=== PATIENT | male | born 1965 | race Caucasian/White ===

== ENCOUNTER 2018-01-15 09:54 | Inpatient (IN) | payer BC, OTHER ==
[2018-01-15 10:08] VITALS: BMI 25.4
[2018-01-15] MEDS ORDERED: SODIUM CHLORIDE 1,000 ML IV STA (10:46)
[2018-01-15] MEDS ORDERED: PANTOPRAZOLE SODIUM 40 MG VIAL IVPUSH ONE (10:46)
[2018-01-15] MEDS ORDERED: PANTOPRAZOLE SODIUM 40 MG/100 ML BAG IVPB ONE (10:47)
[2018-01-15 11:08] LABS: BASO % 0.3 % (0-2.0); EOS % 0.4 % (0-4.5); HEMOGLOBIN 12.9 GM/dL (11.7-16.9); LYMPH % 8.1 % (8-40); MCH 29.2 pg (25.7-33.7); MEAN CELL VOLUME 85.9 fl (80-96); MONO % 5.4 % (3.8-10.2); NEUT % 85.8 % (42.8-82.8); PLATELET COUNT 177 K/MM3 (134-434); RBC 4.43 M/mm3 (4.00-5.60); RDW 13.6 % (11.9-15.9)
[2018-01-15 11:08] LABS: URINE APPEARANCE SLCLOUDY; URINE BILIRUBIN NEGATIVE (<2.0 mg/dL); URINE COLOR YELLOW; URINE GLUCOSE (UA) NEGATIVE (NEGATIVE); URINE KETONE NEGATIVE (NEGATIVE); URINE LEUK ESTERASE NEGATIVE (NEGATIVE); URINE NITRITE NEGATIVE (NEGATIVE); URINE UROBILINOGEN NEGATIVE mg/dL (0.2-1.0)
[2018-01-15] MEDS ORDERED: ACETAMINOPHEN 1000 MG/100 ML VIAL (NON FORMULARY) IVPB ONE (11:09)
[2018-01-15 11:11] LABS: URINE PROTEIN 1+ (NEGATIVE)
[2018-01-15] MEDS ORDERED: ACETAMINOPHEN INJECTION 100 ML IVPB ONE (11:11)
--- NOTE | 2018-01-15 11:17 | PDOC ---
History of Present Illness - General Chief Complaint: Pain, Acute Stated Complaint: PAIN Time Seen by Provider: 01/15/18 10:25 - History of Present Illness Initial Comments: 01/15/18 11:11 52 M with h/o renal CA s/p R nephrectomy, kidney stones, presenting to ED with L flank pain, hematuria, and hematemesis. Pt states that he began to have pain in his L flank this morning. The pain is colicky, radiating into his groin and L testicle. Pt also endorses nausea and vomiting. He states that when he vomited this morning, there was a significant amount of blood. Pt denies any dark stools or BRBPR. Pt took aspirin for pain but denies taking any blood thinners regularly. Pt also notes that he began to see blood in his urine today. Denies any clots. Pt states that the pain is very similar to his previous kidney stones. Denies any scrotal swelling. Pt's urologist and oncologist are at [facility] Past History - Past Medical History Allergies/Adverse Reactions: Allergies Allergy/AdvReac Type Severity Reaction Status Date / Time No Known Allergies Allergy Verified 01/15/18 10:05 Home Medications: Ambulatory Orders Nebivolol [Bystolic -] 5 mg PO DAILY 01/15/18 Cancer: Yes (left kidney) COPD: No Other medical history: right nephrectomy, left - Suicide/Smoking/Psychosocial Hx Smoking Status: No Smoking History: Never smoked Number of Cigarettes Smoked Daily: 0 Review of Systems - Review of Systems Comments:: 01/15/18 11:14 GENERAL/CONSTITUTIONAL: No fever or chills. No weakness. HEAD, EYES, EARS, NOSE AND THROAT: No change in vision. No ear pain or discharge. No sore throat. CARDIOVASCULAR: No chest pain or shortness of breath. RESPIRATORY: No cough, wheezing, or hemoptysis. GASTROINTESTINAL: + hematemesis, no diarrhea or constipation. GENITOURINARY: + hematuria, + L scrotal pain, + L flank pain MUSCULOSKELETAL: No joint or muscle swelling or pain. No neck or back pain. SKIN: No rash NEUROLOGIC: No headache, vertigo, loss of consciousness, or change in strength/ sensation. ENDOCRINE: No increased thirst. No abnormal weight change. HEMATOLOGIC/LYMPHATIC: No anemia, easy bleeding, or history of blood clots. ALLERGIC/IMMUNOLOGIC: No hives or skin allergy. *Physical Exam - Vital Signs Last Vital Signs Temp Pulse Resp BP Pulse Ox 97.8 F 61 18 118/81 100 01/15/18 10:05 01/15/18 10:05 01/15/18 10:05 01/15/18 10:05 01/15/18 10:05 - Physical Exam Comments: 01/15/18 11:15 GENERAL: Awake, alert, and fully oriented, in no acute distress. HEAD: No signs of trauma EYES: PERRLA, EOMI, sclera anicteric, conjunctiva clear ENT: Auricles normal inspection, hearing grossly normal, nares patent, oropharynx clear without exudates. Moist mucosa NECK: Nontender, no stepoffs, Normal ROM, supple, no lymphadenopathy, JVD, or masses LUNGS: Breath sounds equal, clear to auscultation bilaterally. No wheezes, and no crackles HEART: Regular rate and rhythm, normal S1 and S2, no murmurs, rubs or gallops ABDOMEN: Soft, nontender, normoactive bowel sounds. No guarding, no rebound. No masses : + L CVAT, + L scrotal tenderness with no masses, normal lay EXTREMITIES: Normal range of motion, no edema. No clubbing or cyanosis. No cords, erythema, or tenderness NEUROLOGICAL: Cranial nerves II through XII intact. 5/5 strength and sensation in all extremities, Normal speech, normal gait, normal cerebellar function SKIN: Warm, Dry, normal turgor, no rashes or lesions noted. ED Treatment Course - LABORATORY CBC & Chemistry Diagram: 01/15/18 11:00 01/15/18 11:00 - RADIOLOGY Radiology Studies Ordered: Category Date Time Status ABDOMEN & PELVIS CT W/O CONTR [CT] Stat CT Scan 01/15/18 10:45 Ordered SCROTUM AND CONTENTS US [US] Stat Ultrasound 01/15/18 10:54 Ordered - Medications Given in the ED: ED Medications Discontinued Medications Generic Name Dose Route Start Last Admin Trade Name Freq PRN Reason Stop Dose Admin Pantoprazole Sodium 40 mg 01/15/18 10:46 01/15/18 11:05 Protonix Iv IVPUSH 01/15/18 10:47 40 mg ONCE ONE Administration Medical Decision Making - Medical Decision Making 01/15/18 11:15 52 M with renal CA presenting with L flank pain, hematuria, and hematemesis. Exam notable for L CVAT and L scrotal tenderness. Will r/o kidney stone vs pyelo. Also evaluate for testicular torsion. Will need eval for UGIB as well given hematemesis. - Labs, coags, T&S - UA, UCx - CTAP - Scrotal US - Pain control, IVF - Protonix 01/15/18 13:05 Labs notable for Cr 1.9, unclear what baseline is UA with blood, no evidence of infection CT shows 2mm stone in L distal ureter US unremarkable Pt reassessed - continues to have severe pain despite IV tylenol and morphine Will admit for pain control as well as work up of GI bleed 01/15/18 14:14 Pt admitted to hospitalist *DC/Admit/Observation/Transfer Diagnosis at time of Disposition: Kidney stone, Hematemesis, LOVE (acute kidney injury) - Discharge Dispostion Decision to Admit order: Yes - Referrals - Patient Instructions - Post Discharge Activity - Attestations Physician Attestion: 01/15/18 14:15 I, Dr. Gopal Carrillo MD, attest that this document has been prepared under my direction and personally reviewed by me in its entirety. I further attest, that it accurately reflects all work, treatment, procedures and medical decision -making performed by me.
[2018-01-15 11:21] LABS: INR 1.01 (0.83-1.09); PROTHROMBIN TIME (PATIENT) 11.4 SEC (9.7-13.0)
[2018-01-15 11:23] LABS: GRANULAR CASTS 6 /lpf; URINE BACTERIA MANY /hpf (NONE SEEN); URINE MUCUS RARE
[2018-01-15 11:24] LABS: ACTIVATED PTT 31.4 SECONDS (25.2-36.5)
[2018-01-15 11:37] LABS: ALBUMIN 3.6 g/dl (3.4-5.0); ALK PHOS 69 U/L (45-117); ANION GAP 5 MMOL/L (8-16); BILIRUBIN,TOTAL 0.4 mg/dL (0.2-1); BLOOD UREA NITROGEN 19 mg/dL (7-18); CALCIUM 9.3 mg/dL (8.5-10.1); CHLORIDE 106 mmol/L (98-107); CO2 27 mmol/L (21-32); CREATININE 1.9 mg/dL (0.55-1.3); GLUCOSE,RANDOM 93 mg/dL (74-106); LIPASE 159 U/L (73-393); POTASSIUM 5.2 mmol/L (3.5-5.1); SGOT/AST 28 U/L (15-37); SGPT/ALT 53 U/L (13-61); SODIUM 138 mmol/L (136-145); TOT PROT 7.1 g/dl (6.4-8.2)
[2018-01-15] MEDS ORDERED: morphine CARPU-JECT 4 MG/1 ML DISP.SYRIN IVPUSH ONE ×3 (12:08→14:50)
[2018-01-15] MEDS ORDERED: morphine SULFATE 4 MG/ML VIAL ONE ×3 (12:13→14:52)
[2018-01-15] MEDS ORDERED: ONDANSETRON 4 MG/2 ML VIAL IVPB ONE (14:50)
[2018-01-15] MEDS ORDERED: ONDANSETRON 4 MG/2 ML VIAL ONE (14:52)
--- NOTE | 2018-01-15 15:34 | HP ---
CHIEF COMPLAINT: left flank pain, hematuria, coughing up blood x 1 PCP: none dr. lopes, nephrology - [facility] HISTORY OF PRESENT ILLNESS: Patient 52 year old male with a significant past medical history of renal cancer with a right nephrectomy in 2016 at [facility] and history of kidney stones. He comes into the ED today with complaints of left flank pain, hematuria and hematemesis. The left flank pain began this morning and he describes it as a dull colicky pain that radiates to his groin and left testicle. He also has nausea and vomiting. He vomited this morning into the toilet he saw a significant amount of blood. No dark bowel movements but did take aspirin for the pain he was having to his back. Pt also notes that he began to see blood in his urine today, no clots. No scrotal swelling. Imaging: ct/abd/pelvis w/o contrast: 2 mm distal left ureteral calculus partially obstructing. mild degree of hydronephrosis. left renal mass cyst. u/x follow up recommended. us/scrotum: no evidence of torsion or acute testicular pathology. small bilateral varicoceles ER course was notable for: (1) creat 1.9 (2) hmg/hct stable (3) k. 5.2 Recent Travel: PAST MEDICAL HISTORY: renal cancer with a right nephrectomy in 2016 at [facility] and kidney stones. PAST SURGICAL HISTORY: Social History: Smoking: none Alcohol: none Drugs: none Family History: Allergies No Known Allergies Allergy (Verified 01/15/18 10:05) HOME MEDICATIONS: Home Medications Medication Instructions Recorded Nebivolol [Bystolic -] 5 mg PO DAILY 01/15/18 PHYSICAL EXAMINATION Vital Signs - 24 hr 01/15/18 01/15/18 01/15/18 10:05 13:24 15:13 Temperature 97.8 F 98.7 F 99.3 F Pulse Rate 61 Pulse Rate [ 78 75 Left Radial] Respiratory 18 18 18 Rate Blood Pressure 118/81 Blood Pressure 115/68 118/76 [Right Arm] O2 Sat by Pulse 100 98 98 Oximetry (%) GENERAL: Awake, alert, and fully oriented, in no acute distress. HEAD: Normal with no signs of trauma. EYES: Pupils equal, round and reactive to light, extraocular movements intact, sclera anicteric, conjunctiva clear. No lid lag. EARS, NOSE, THROAT: Ears normal, nares patent, oropharynx clear without exudates. Moist mucous membranes. NECK: Normal range of motion, supple without lymphadenopathy, JVD, or masses. LUNGS: Breath sounds equal, clear to auscultation bilaterally. No wheezes, and no crackles. No accessory muscle use. HEART: Regular rate and rhythm, normal S1 and S2 without murmur, rub or gallop. ABDOMEN: Soft, nontender, not distended, normoactive bowel sounds, no guarding, no rebound, no masses. No hepatomegaly or splenomegaly. MUSCULOSKELETAL: Normal range of motion at all joints. No bony deformities or tenderness. No CVA tenderness. UPPER EXTREMITIES: 2+ pulses, warm, well-perfused. No cyanosis. No clubbing. No peripheral edema. LOWER EXTREMITIES: 2+ pulses, warm, well-perfused. No calf tenderness. No peripheral edema. NEUROLOGICAL: Cranial nerves II-XII intact. Normal speech. Normal gait. PSYCHIATRIC: Cooperative. Good eye contact. Appropriate mood and affect. SKIN: Warm, dry, normal turgor, no rashes or lesions noted, normal capillary refill. Laboratory Results - last 24 hr 01/15/18 01/15/18 01/15/18 10:38 11:00 11:00 WBC 6.0 RBC 4.43 Hgb 12.9 Hct 38.0 MCV 85.9 MCH 29.2 MCHC 34.0 RDW 13.6 Plt Count 177 MPV 9.0 Absolute Neuts (auto) 5.1 Neutrophils % 85.8 H Lymphocytes % 8.1 Monocytes % 5.4 Eosinophils % 0.4 Basophils % 0.3 Nucleated RBC % 0 PT with INR INR PTT (Actin FS) Sodium 138 Potassium 5.2 H Chloride 106 Carbon Dioxide 27 Anion Gap 5 L BUN 19 H Creatinine 1.9 H Creat Clearance w eGFR 37.56 Random Glucose 93 Calcium 9.3 Total Bilirubin 0.4 AST 28 ALT 53 Alkaline Phosphatase 69 Total Protein 7.1 Albumin 3.6 Lipase 159 Urine Color Yellow Urine Appearance Slcloudy Urine pH 5.0 Ur Specific [place] 1.015 Urine Protein 1+ H Urine Glucose (UA) Negative Urine Ketones Negative Urine Blood 3+ H Urine Nitrite Negative Urine Bilirubin Negative Urine Urobilinogen Negative Ur Leukocyte Esterase Negative Urine WBC (Auto) None Urine RBC (Auto) 2690 Urine Bacteria Many Granular Casts 6 Urine Mucus Rare Blood Type Antibody Screen 01/15/18 01/15/18 01/15/18 11:00 11:00 13:20 WBC RBC Hgb Hct MCV MCH MCHC RDW Plt Count MPV Absolute Neuts (auto) Neutrophils % Lymphocytes % Monocytes % Eosinophils % Basophils % Nucleated RBC % PT with INR 11.40 INR 1.01 PTT (Actin FS) 31.4 Sodium Potassium Chloride Carbon Dioxide Anion Gap BUN Creatinine Creat Clearance w eGFR Random Glucose Calcium Total Bilirubin AST ALT Alkaline Phosphatase Total Protein Albumin Lipase Urine Color Urine Appearance Urine pH Ur Specific [place] Urine Protein Urine Glucose (UA) Urine Ketones Urine Blood Urine Nitrite Urine Bilirubin Urine Urobilinogen Ur Leukocyte Esterase Urine WBC (Auto) Urine RBC (Auto) Urine Bacteria Granular Casts Urine Mucus Blood Type O POSITIVE O POSITIVE Antibody Screen Negative ASSESSMENT/PLAN: Patient 52 year old male with a significant past medical history of renal cancer with a right nephrectomy in 2016 at [facility] and history of kidney stones. He comes into the ED today with complaints of left flank pain, hematuria and hematemesis. The left flank pain began this morning and he describes it as a dull colicky pain that radiates to his groin and left testicle. He also has nausea and vomiting. He vomited this morning into the toilet he saw a significant amount of blood. No dark bowel movements but did take aspirin for the pain he was having to his back. Pt also notes that he began to see blood in his urine today, no clots. No scrotal swelling. Imaging: ct/abd/pelvis w/o contrast: 2 mm distal left ureteral calculus partially obstructing. mild degree of hydronephrosis. left renal mass cyst. u/x follow up recommended. us/scrotum: no evidence of torsion or acute testicular pathology. small bilateral varicoceles : Left flank pain/hematuria in the setting of a 2mm distal left ureteral partially obstructing stone. Will hydrate with NS @ 100cc/hr. Provide pain relief for the left flank pain. Ultrasound of the kidneys and bladder ordered and pending. His urine showed 3+ blood, and urine cultures sent and pending. Urology consulted by the ED. Renal Right nephrectomy secondary to cancer. Baseline creat 1.6 per patient, presents with creat 1.9. will hydrate with NS. NSAID home use reported for left flank pain. Monitor kidney function. If no improvement, will consult renal. kidney ultrasound ordered. GI: Hematemesis, no further episodes reported. protonix 40mg iv push bid. clear liquid diet tonight. Repeat CBC tonight. GI has been consulted. fen ns @100cc/hr monitor potassium, electrolytes repeat CBC tonight clear liquid diet protonix bid full code Hospitalist Screening - Colonoscopy Questionnaire Colonoscopy Questionnaire: Colonoscopy Questionnaire
[2018-01-15] MEDS ORDERED: SODIUM CHLORIDE 1,000 ML IV SCH (16:15)
[2018-01-15] MEDS ORDERED: MORPHINE SULFATE 2 MG/ML VIAL IVPUSH PRN (17:49)
[2018-01-15] MEDS ORDERED: ACETAMINOPHEN 325 MG TABLET (FP) PO PRN (18:54)
[2018-01-15] MEDS: SODIUM CHLORIDE 1,000 ML IV SCH (19:43)
[2018-01-15 19:57] LABS: BASO % 0.2 % (0-2.0); EOS % 0.1 % (0-4.5); HEMATOCRIT 38.8 % (35.4-49); LYMPH % 5.2 % (8-40); MCH 28.7 pg (25.7-33.7); MCHC 33.4 g/dl (32.0-35.9); MEAN CELL VOLUME 85.9 fl (80-96); MEAN PLT VOLUME 9.1 fl (7.5-11.1); NEUT % 88.5 % (42.8-82.8); PLATELET COUNT 160 K/MM3 (134-434); RBC 4.52 M/mm3 (4.00-5.60); RDW 13.7 % (11.9-15.9); WHITE BLOOD COUNT 8.3 K/mm3 (4.0-10.0)
[2018-01-15] MEDS ORDERED: PANTOPRAZOLE SODIUM 40 MG VIAL IVPUSH SCH (22:00)
[2018-01-16] MEDS: SODIUM CHLORIDE 1,000 ML IV SCH ×2 (05:06→21:05)
[2018-01-16] MEDS ORDERED: DEXTROSE 5%-WATER - 50 ML IVPB ONE (08:59)
[2018-01-16] MEDS ORDERED: cefTRIAXone SODIUM 1 GM VIAL ONE (08:59)
[2018-01-16] MEDS ORDERED: CEFTRIAXONE 1 GM in DEXTROSE 5%-WATER - 50 ML IVPB ONE (09:00)
[2018-01-16 09:08] LABS: BASO % 0.2 % (0-2.0); EOS % 0.1 % (0-4.5); HEMATOCRIT 38.6 % (35.4-49); HEMOGLOBIN 12.5 GM/dL (11.7-16.9); LYMPH % 7.4 % (8-40); MCH 28.2 pg (25.7-33.7); MCHC 32.3 g/dl (32.0-35.9); MEAN CELL VOLUME 87.1 fl (80-96); MEAN PLT VOLUME 9.3 fl (7.5-11.1); NEUT % 86.3 % (42.8-82.8); PLATELET COUNT 170 K/MM3 (134-434); RBC 4.44 M/mm3 (4.00-5.60); RDW 13.7 % (11.9-15.9); WHITE BLOOD COUNT 9.5 K/mm3 (4.0-10.0)
--- NOTE | 2018-01-16 09:21 | CON.GI ---
Consult Consult Specialty:: GI Referred by:: Hospitalist Service Reason for Consultation:: Hematemesis - History of Present Illness Chief Complaint: Back pain History of Present Illness: 52M admitted fror evaluation of left back pain radiating to his left groin. This started yesterday. He also vomited blood yesterday. Initial Hgb 12.9. Current Hgb 12.5. Over the past 2 weeks he has been increasing his use of ASA, which he takes for pain. He took three 325mg aspirin pills two days ago. There has been no further hematemesis however he vomited his clear liquid diet. He denies abdominal pain. he describes similar episode of hematemesis when he was diagnosed with his right renal mass. He has never had an upper endoscopy. He does recall having a colonoscopy 2 years ago that led to the removal of 4 polyps. This was performed in [facility]. There is no family h/o colorectal cancer or other GI malignancy. He noticed cherri blood in his urine yesterday and CT scan reveals a partially obstructing ureteral stone in the left ureter with mild hydronephrosis as wekll as a left renal mass vs. cyst. - History Source History Provided By: Patient, Medical Record Limitations to Obtaining History: No Limitations - Past Medical History Cardio/Vascular: Yes: HTN Gastrointestinal: Yes: Other (Colon polyps) - Past Surgical History Past Surgical History: Yes: Nephrectomy (Right, secondary to renal cancer @ [facility] 2016) - Alcohol/Substance Use Hx Alcohol Use: Yes (Occasional wine) History of Substance Use: reports: None - Smoking History Smoking history: Never smoked Have you smoked in the past 12 months: No Aproximately how many cigarettes per day: 0 - Social History Usual Living Arrangement: With Spouse ADL: Independent 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 History of Recent Travel: No Home Medications - Allergies Allergies/Adverse Reactions: Allergies Allergy/AdvReac Type Severity Reaction Status Date / Time No Known Allergies Allergy Verified 01/15/18 10:05 - Home Medications Home Medications: Ambulatory Orders Nebivolol [Bystolic -] 5 mg PO DAILY 01/15/18 Family Disease History - Family Disease History Family Disease History: Other: Father (Alive: healthy), Mother (Alive: healthy) , Brother (1, healthy), Sister (1, healthy), Son (1, healthy), Daughter (3, healthy) Other Family History: No family history of colorectal cancer or other GI malignancy Review of Systems - Review of Systems Constitutional: denies: Chills, Fever Cardiovascular: denies: Chest Pain Respiratory: denies: SOB Gastrointestinal: denies: Abdominal Pain, Constipation, Diarrhea, Melena, Rectal Bleeding Musculoskeletal: reports: Back Pain Physical Exam-GI Vital Signs: Vital Signs Temperature 99.2 F 01/16/18 06:11 Pulse Rate 67 01/16/18 06:11 Respiratory Rate 20 01/16/18 06:11 Blood Pressure 128/79 01/16/18 06:11 O2 Sat by Pulse Oximetry (%) 98 01/16/18 06:11 Constitutional: Yes: Calm Eyes: No: Sclera Icterus Cardiovascular: Yes: Regular Rate and Rhythm. No: Murmur Respiratory: Yes: CTA Bilaterally Gastrointestinal Inspection: Yes: Scars (righty sided abdominal scar). No: Distention ...Auscultate: Yes: Normoactive Bowel Sounds ...Palpate: No: Hepatomegaly, Splenomegaly, Tenderness ...Percussion: No: Tympanitic ...Rectal Exam: Yes: Deferred (refused by patient) Edema: No (No LE edema) Labs: CBC, BMP 01/16/18 08:40 INR, PTT INR 1.01 (0.83-1.09) 01/15/18 11:00 Hepatic Panel Total Bilirubin 0.4 mg/dL (0.2-1) 01/15/18 11:00 AST 28 U/L (15-37) 01/15/18 11:00 ALT 53 U/L (13-61) 01/15/18 11:00 Alkaline Phosphatase 69 U/L (45-117) 01/15/18 11:00 Albumin 3.6 g/dl (3.4-5.0) 01/15/18 11:00 Imaging - Results Cat Scan: Report Reviewed Problem List - Problems (1) Hematemesis Assessment/Plan: Hemodyanmically stable with stable H/H and no repeat episodes of hematemesis Discussed upper endoscopy with Mr. Ragsdale to evaluate for potential source of bleeding such as bleeding blood vessel, rai tabor tear, PUD in setting of increased ASA use, alternate pathology. Discussed potential risks of the procedure like but not limited to bleeding, perforation requiring surgery to repair, infection, sedation medication effects all of which could be potentially life threatening. He has agreed to the procedure. For now: Clear liquid Protonix 40mg PO BID If continued active bleeding, transfer to ICU / NPO / PPI drip Code(s): K92.0 - HEMATEMESIS
[2018-01-16] MEDS: PANTOPRAZOLE 40 MG TABLET (FP) PO SCH ×2 (09:58→21:05)
[2018-01-16 10:29] LABS: ANION GAP 9 MMOL/L (8-16); BLOOD UREA NITROGEN 32 mg/dL (7-18); CHLORIDE 109 mmol/L (98-107); CO2 23 mmol/L (21-32); CREATININE 5.4 mg/dL (0.55-1.3); GLUCOSE,RANDOM 94 mg/dL (74-106); POTASSIUM 5.2 mmol/L (3.5-5.1); SODIUM 140 mmol/L (136-145)
[2018-01-16 10:34] LABS: CALCIUM 6.6 mg/dL (8.5-10.1)
[2018-01-16] MEDS: NEBIVOLOL 5 MG TABLET (FP) PO SCH (11:03)
[2018-01-16 11:05] LABS: URINE APPEARANCE CLEAR; URINE BILIRUBIN NEGATIVE (<2.0 mg/dL); URINE COLOR LTYELLOW; URINE GLUCOSE (UA) NEGATIVE (NEGATIVE); URINE KETONE NEGATIVE (NEGATIVE); URINE LEUK ESTERASE NEGATIVE (NEGATIVE); URINE NITRITE NEGATIVE (NEGATIVE); URINE UROBILINOGEN NEGATIVE mg/dL (0.2-1.0)
[2018-01-16 11:18] LABS: URINE PROTEIN 1+ (NEGATIVE)
[2018-01-16 11:19] LABS: EPI CELLS RARE /HPF (FEW); URINE BACTERIA FEW /hpf (NONE SEEN)
--- NOTE | 2018-01-16 13:13 | CON.NEP ---
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 He had taken 975 mg of aspirin the day before for a headache and also had hematemesis. He had a CT scan which showed a 2 mm distal ureteral stone but a sonogram subsequently failed to show it. He thinks he passed it because he is comfortable now. The CT also showed a full bladder so it appear he was not completely obstructed. He used NSAIDs frequently in the past and has had contrast CTs at least 3 times. His creatinine has been 1.7 to 1.8 dating back to july which suggests a degree of CKD probably from nsaids or contrast. He feels better. His creat ander and his calcium dropped since admission yesterdya so nephrology is called. He has a history of nephrolithiasis on the nephrectomized kidney and his symptoms are similar to his previous episodes - History Source History Provided By: Patient Limitations to Obtaining History: No Limitations - Past Medical History Cardio/Vascular: Yes: HTN Gastrointestinal: Yes: Other (Colon polyps) Renal/: Yes: Renal Calculi - Past Surgical History Past Surgical History: Yes: Nephrectomy (Right, secondary to renal cancer @ [facility] 2016) - Alcohol/Substance Use Hx Alcohol Use: Yes (Occasional wine) History of Substance Use: reports: None - Smoking History Smoking history: Never smoked Have you smoked in the past 12 months: No Aproximately how many cigarettes per day: 0 - Social History Usual Living Arrangement: With Spouse ADL: Independent 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 Travel: No Home Medications - Allergies Allergies/Adverse Reactions: Allergies Allergy/AdvReac Type Severity Reaction Status Date / Time No Known Allergies Allergy Verified 01/15/18 10:05 - Home Medications Home Medications: Ambulatory Orders Nebivolol [Bystolic -] 5 mg PO DAILY 01/15/18 Family Disease History - Family Disease History Family Disease History: Other: Father (Alive: healthy), Mother (Alive: healthy) , Brother (1, healthy), Sister (1, healthy), Son (1, healthy), Daughter (3, healthy) Other Family History: No family history of colorectal cancer or other GI malignancy Review of Systems - Review of Systems Constitutional: reports: Malaise, Weakness Eyes: reports: No Symptoms HENT: reports: No Symptoms Neck: reports: No Symptoms Cardiovascular: reports: No Symptoms Respiratory: reports: No Symptoms Gastrointestinal: reports: Abdominal Pain, Vomiting, Vomiting Blood Genitourinary: reports: Flank Pain, Hematuria, Testicular Pain Breasts: reports: No Symptoms Reported Musculoskeletal: reports: No Symptoms Integumentary: reports: No Symptoms Neurological: reports: No Symptoms Endocrine: reports: No Symptoms Hematology/Lymphatic: reports: No Symptoms Psychiatric: reports: No Symptoms Nephrology Consult - Height Height: 5 ft 10 in - Weight Weight: 177 lb - BMI Body Mass Index (BMI): 25.4 - Lab Results CBC,BMP: CBC, BMP 01/16/18 08:40 01/16/18 08:40 Anion Gap: Anion Gap Anion Gap 9 MMOL/L (8-16) 01/16/18 08:40 - Imaging Cat Scan: Report Reviewed, Image Reviewed Ultrasound: Report Reviewed (no stone noted, possible complex cyst) - Physical Examination Vital Signs: Vital Signs Temperature 98.0 F 01/16/18 09:55 Pulse Rate 55 L 01/16/18 09:55 Respiratory Rate 16 01/16/18 09:55 Blood Pressure 124/88 01/16/18 09:55 O2 Sat by Pulse Oximetry (%) 98 01/16/18 06:11 Constitutional: Yes: Well Nourished, No Distress, Calm Eyes: Yes: Conjunctiva Clear, EOM Intact HENT: Yes: Atraumatic, Normocephalic Neck: Yes: Supple, Trachea Midline Cardiovascular: Yes: Regular Rate and Rhythm Respiratory: Yes: Regular, CTA Bilaterally Gastrointestinal: Yes: Normal Bowel Sounds Renal/: Yes: WNL. No: Bladder Distention, CVA Tenderness - Left, CVA Tenderness - Right Musculoskeletal: Yes: WNL Extremities: Yes: WNL Edema: No Peripheral Pulses WNL: Yes Integumentary: Yes: WNL Neurological: Yes: Alert, Oriented Psychiatric: Yes: Alert, Oriented Assessment/Plan IMPRESSION see HPI HTN MICHELLE- ? error vs obstructive though he was not completely obstructed Nephrolithiasis- seems to have passed a stone possible recurrence of cancer hypocalcemia r/o lab error recurrent hematemesis may be related to aspirin CKD PLAN keep hydrated repeat labs EGD tomorrow If persistently hypocalcemic will need work up and treament ck MV
--- NOTE | 2018-01-16 13:51 | PN ---
Physical Exam: SUBJECTIVE: Patient seen and examined at the bedside. OBJECTIVE: Vital Signs Period Temp Pulse Resp BP Sys/Morrison Pulse Ox Last 24 Hr 98.0 F-99.3 F 55-75 16-20 118-133/76-88 98-98 GENERAL: The patient is awake, alert, and fully oriented, in no acute distress. HEAD: Normal with no signs of trauma. EYES: PERRL, extraocular movements intact, sclera anicteric, conjunctiva clear. No ptosis. ENT: Ears normal, nares patent, oropharynx clear without exudates, moist mucous membranes. NECK: Trachea midline, full range of motion, supple. LUNGS: Breath sounds equal, clear to auscultation bilaterally, no wheezes, no crackles, no accessory muscle use. HEART: Regular rate and rhythm ABDOMEN: Soft, nontender, nondistended, normoactive bowel sounds, no guarding, no rebound, no hepatosplenomegaly, no masses. EXTREMITIES: 2+ pulses, warm, well-perfused, no edema. NEUROLOGICAL: Cranial nerves II through XII grossly intact. Normal speech, gait not observed. PSYCH: Normal mood, normal affect. SKIN: Warm, dry, normal turgor, no rashes or lesions noted Laboratory Results - last 24 hr 01/15/18 01/15/18 01/16/18 13:20 19:40 08:40 WBC 8.3 9.5 RBC 4.52 4.44 Hgb 13.0 12.5 Hct 38.8 38.6 MCV 85.9 87.1 MCH 28.7 28.2 MCHC 33.4 32.3 RDW 13.7 13.7 Plt Count 160 170 MPV 9.1 9.3 Absolute Neuts (auto) 7.3 8.2 H Neutrophils % 88.5 H 86.3 H Lymphocytes % 5.2 L D 7.4 L D Monocytes % 6.0 6.0 Eosinophils % 0.1 0.1 Basophils % 0.2 0.2 Nucleated RBC % 0 0 Sodium Potassium Chloride Carbon Dioxide Anion Gap BUN Creatinine Creat Clearance w eGFR Random Glucose Calcium Urine Color Urine Appearance Urine pH Ur Specific [place] Urine Protein Urine Glucose (UA) Urine Ketones Urine Blood Urine Nitrite Urine Bilirubin Urine Urobilinogen Ur Leukocyte Esterase Urine WBC (Auto) Urine RBC (Auto) Ur Epithelial Cells Urine Bacteria Blood Type O POSITIVE 01/16/18 01/16/18 08:40 10:40 WBC RBC Hgb Hct MCV MCH MCHC RDW Plt Count MPV Absolute Neuts (auto) Neutrophils % Lymphocytes % Monocytes % Eosinophils % Basophils % Nucleated RBC % Sodium 140 Potassium 5.2 H Chloride 109 H Carbon Dioxide 23 Anion Gap 9 BUN 32 H Creatinine 5.4 H Creat Clearance w eGFR 11.25 Random Glucose 94 Calcium 6.6 L* Urine Color Ltyellow Urine Appearance Clear Urine pH 6.0 Ur Specific [place] 1.004 Urine Protein 1+ H Urine Glucose (UA) Negative Urine Ketones Negative Urine Blood 3+ H Urine Nitrite Negative Urine Bilirubin Negative Urine Urobilinogen Negative Ur Leukocyte Esterase Negative Urine WBC (Auto) 8 Urine RBC (Auto) 27 Ur Epithelial Cells Rare Urine Bacteria Few Blood Type Active Medications Generic Name Dose Route Start Last Admin Trade Name Freq PRN Reason Stop Dose Admin Acetaminophen 650 mg 01/15/18 18:54 Tylenol - PO Q6H PRN PAIN LEVEL 4 - 6 Sodium Chloride 1,000 mls @ 100 mls/hr 01/15/18 18:00 01/16/18 05:06 Normal Saline - IV 100 mls/hr ASDIR CHRIS Administration Levofloxacin 500 mg in 100 mls @ 100 mls/hr 01/16/18 10:00 01/16/18 11:03 Levaquin 500 Mg Premixed Ivpb - IVPB 100 mls/hr DAILY CHRIS Administration Morphine Sulfate 2 mg 01/15/18 17:49 01/16/18 05:08 Morphine Sulfate IVPUSH 2 mg Q4H PRN Administration PAIN 4-6 Nebivolol 5 mg 01/16/18 10:00 01/16/18 11:03 Bystolic - PO 5 mg DAILY CHRIS Administration Pantoprazole Sodium 40 mg 01/16/18 10:00 01/16/18 09:58 Protonix - PO 40 mg BID CHRIS Administration ASSESSMENT/PLAN: Patient 52 year old male with a significant past medical history of renal cancer with a right nephrectomy in 2016 at [facility] [place] and history of kidney stones. He comes into the ED today with complaints of left flank pain, hematuria and hematemesis. The left flank pain began this morning and he describes it as a dull colicky pain that radiates to his groin and left testicle. He also has nausea and vomiting. He vomited this morning into the toilet he saw a significant amount of blood. No dark bowel movements but did take aspirin for the pain he was having to his back. Pt also notes that he began to see blood in his urine today, no clots. No scrotal swelling. Imaging: ct/abd/pelvis w/o contrast: 2 mm distal left ureteral calculus partially obstructing. mild degree of hydronephrosis. left renal mass cyst. u/x follow up recommended. us/scrotum: no evidence of torsion or acute testicular pathology. small bilateral varicoceles renal u/s: nonspecific mildly hyperechoic 1.3 left renal focus at level of lower pole of left kidney. min left hydro secondary to a 0.2 cm distal left ureteral calculus. : Left flank pain/hematuria in the setting of a 0.2 distal left ureteral partially obstructing stone. Hydration with NS @ 100cc/hr. His urine showed 3+blood, and urine cultures sent and pending. Urology consulted by the ED. Renal Right nephrectomy secondary to cancer Solitary kidney. baseline creat reported to be 1.6. creat increased to 5.4 which could be due to partially obstructing stone. Will consult renal and await further recommendations. Discussed with Dr. De Jesus. repeat labs noted. creat 4.8. corrected calcium wnl. On NS @ 100cc/hr GI: Hematemesis, no further episodes reported. protonix 40mg iv push bid. clear liquid. EGD tomorrow. fen ns @100cc/hr monitor potassium, electrolytes repeat CBC tonight clear liquid diet protonix bid full code Visit type - Emergency Visit Emergency Visit: Yes ED Registration Date: 01/15/18 Care time: The patient presented to the Emergency Department on the above date and was hospitalized for further evaluation of their emergent condition. - New Patient This patient is new to me today: No - Critical Care Critical Care patient: No - Discharge Referral Referred to [facility] Med P.C.: No
[2018-01-16 14:25] LABS: ANION GAP 3 MMOL/L (8-16); BLOOD UREA NITROGEN 33 mg/dL (7-18); CALCIUM 8.3 mg/dL (8.5-10.1); CHLORIDE 110 mmol/L (98-107); CO2 27 mmol/L (21-32); CREATININE 4.8 mg/dL (0.55-1.3); GLUCOSE,RANDOM 88 mg/dL (74-106); POTASSIUM 4.9 mmol/L (3.5-5.1); SODIUM 140 mmol/L (136-145)
[2018-01-17] MEDS: SODIUM CHLORIDE 1,000 ML IV SCH (00:33)
[2018-01-17 08:01] LABS: BASO % 0.4 % (0-2.0); EOS % 1.2 % (0-4.5); HEMATOCRIT 37.7 % (35.4-49); HEMOGLOBIN 12.4 GM/dL (11.7-16.9); LYMPH % 15.2 % (8-40); MCH 28.4 pg (25.7-33.7); MCHC 32.9 g/dl (32.0-35.9); MEAN CELL VOLUME 86.4 fl (80-96); MONO % 7.2 % (3.8-10.2); PLATELET COUNT 154 K/MM3 (134-434); RBC 4.36 M/mm3 (4.00-5.60); RDW 13.7 % (11.9-15.9); WHITE BLOOD COUNT 6.2 K/mm3 (4.0-10.0)
[2018-01-17 08:45] LABS: ALBUMIN 3.1 g/dl (3.4-5.0); ALK PHOS 60 U/L (45-117); ANION GAP 5 MMOL/L (8-16); BILIRUBIN,TOTAL 0.4 mg/dL (0.2-1); BLOOD UREA NITROGEN 29 mg/dL (7-18); CALCIUM 8.8 mg/dL (8.5-10.1); CHLORIDE 112 mmol/L (98-107); CO2 24 mmol/L (21-32); CREATININE 3.1 mg/dL (0.55-1.3); GLUCOSE,RANDOM 78 mg/dL (74-106); POTASSIUM 4.8 mmol/L (3.5-5.1); SGOT/AST 18 U/L (15-37); SGPT/ALT 34 U/L (13-61); SODIUM 141 mmol/L (136-145); TOT PROT 6.6 g/dl (6.4-8.2)
[2018-01-17] MEDS ORDERED: PT OWN MED DRAWER 7, Y5N ONE (09:18)
[2018-01-17] MEDS: PANTOPRAZOLE 40 MG TABLET (FP) PO SCH ×2 (09:28→13:29)
[2018-01-17] MEDS: NEBIVOLOL 5 MG TABLET (FP) PO SCH (09:28)
--- NOTE | 2018-01-17 11:48 | PN ---
Progress Note (short form) - Note Progress Note: EGD placed in physical chart and to be scanned into [employer] Problem List - Problems (1) Hematemesis Code(s): K92.0 - HEMATEMESIS
--- NOTE | 2018-01-17 13:48 | CON.GU ---
Consult - History of Present Illness History of Present Illness: 52 yo male with h/o nephrolithiasis, admitted with left renal colic secondary to a 2mm LDU stone. Feels better now, thinks he passed the stone. Creatinine still elevated. Had rt nephrectomy for RCC in 2016 and with known lesions on left kidney - Past Medical History Cardio/Vascular: Yes: HTN Gastrointestinal: Yes: Other (Colon polyps) Renal/: Yes: Renal Calculi - Past Surgical History Past Surgical History: Yes: Nephrectomy (Right, secondary to renal cancer @ [facility] 2016) - Alcohol/Substance Use Hx Alcohol Use: Yes (Occasional wine) History of Substance Use: reports: None - Smoking History Smoking history: Never smoked Have you smoked in the past 12 months: No Aproximately how many cigarettes per day: 0 - Social History Usual Living Arrangement: With Spouse ADL: Independent Occupation: Works as doorman in [employer] History of Recent Travel: No Home Medications - Allergies Allergies/Adverse Reactions: Allergies Allergy/AdvReac Type Severity Reaction Status Date / Time No Known Allergies Allergy Verified 01/15/18 10:05 - Home Medications Home Medications: Ambulatory Orders Nebivolol [Bystolic -] 5 mg PO DAILY 01/15/18 Family Disease History - Family Disease History Family Disease History: Other: Father (Alive: healthy), Mother (Alive: healthy) , Brother (1, healthy), Sister (1, healthy), Son (1, healthy), Daughter (3, healthy) Other Family History: No family history of colorectal cancer or other GI malignancy Physical Exam- Vital Signs: Vital Signs Temperature 97.5 F L 01/17/18 11:25 Pulse Rate 53 L 01/17/18 12:01 Respiratory Rate 12 01/17/18 12:01 Blood Pressure 135/89 01/17/18 12:01 O2 Sat by Pulse Oximetry (%) 98 01/17/18 12:01 Labs: CBC, BMP 01/17/18 07:30 01/17/18 07:30 Imaging - Results Cat Scan: Report Reviewed Problem List - Problems (1) Left ureteral calculus Assessment/Plan: repeat imaging to confirm resolution of hydro Code(s): N20.1 - CALCULUS OF URETER
--- NOTE | 2018-01-17 15:06 | PN ---
Progress Note, Physician History of Present Illness: Pt seen and examined at bedside. He is awake and alert. He denies dysuria. He says that the urine is clear. - Current Medication List Current Medications: Active Medications Acetaminophen (Tylenol -) 650 mg PO Q6H PRN PRN Reason: PAIN LEVEL 4 - 6 Sodium Chloride (Normal Saline -) 1,000 mls @ 100 mls/hr IV ASDIR [facility] Last Admin: 01/17/18 00:33 Dose: 100 mls/hr Levofloxacin (Levaquin 500 Mg Premixed Ivpb -) 500 mg in 100 mls @ 100 mls/hr IVPB DAILY [facility] Last Admin: 01/17/18 09:28 Dose: 100 mls/hr Morphine Sulfate (Morphine Sulfate) 2 mg IVPUSH Q4H PRN PRN Reason: PAIN 4-6 Last Admin: 01/16/18 05:08 Dose: 2 mg Nebivolol (Bystolic -) 5 mg PO DAILY [facility] Last Admin: 01/17/18 09:28 Dose: 5 mg Pantoprazole Sodium (Protonix -) 40 mg PO DAILY [facility] Last Admin: 01/17/18 13:29 Dose: 40 mg - Objective Vital Signs: Vital Signs Temperature 98.3 F 01/17/18 14:44 Pulse Rate 58 L 01/17/18 14:44 Respiratory Rate 18 01/17/18 14:44 Blood Pressure 148/86 01/17/18 14:44 O2 Sat by Pulse Oximetry (%) 98 01/17/18 12:01 Constitutional: Yes: Calm Eyes: Yes: Conjunctiva Clear HENT: Yes: Atraumatic Neck: Yes: Supple Cardiovascular: Yes: S1, S2 Respiratory: Yes: CTA Bilaterally Gastrointestinal: Yes: Normal Bowel Sounds, Soft Genitourinary: Yes: WNL Musculoskeletal: Yes: WNL Edema: No Neurological: Yes: Oriented Psychiatric: Yes: Oriented Labs: CBC, BMP 01/17/18 07:30 01/17/18 07:30 INR, PTT INR 1.01 (0.83-1.09) 01/15/18 11:00 Problem List - Problems (1) CHAN (acute kidney injury) Code(s): N17.9 - ACUTE KIDNEY FAILURE, UNSPECIFIED (2) Kidney stone Code(s): N20.0 - CALCULUS OF KIDNEY Assessment/Plan Current Medications Generic Name Dose Route Start Last Admin Trade Name Rickq PRN Reason Stop Dose Admin Acetaminophen 650 mg 01/15/18 18:54 Tylenol - PO Q6H PRN PAIN LEVEL 4 - 6 Sodium Chloride 1,000 mls @ 100 mls/hr 01/15/18 18:00 01/17/18 00:33 Normal Saline - IV 100 mls/hr ASDIR CHRIS Administration Levofloxacin 500 mg in 100 mls @ 100 mls/hr 01/16/18 10:00 01/17/18 09:28 Levaquin 500 Mg Premixed Ivpb - IVPB 100 mls/hr DAILY CHRIS Administration Morphine Sulfate 2 mg 01/15/18 17:49 01/16/18 05:08 Morphine Sulfate IVPUSH 2 mg Q4H PRN Administration PAIN 4-6 Nebivolol 5 mg 01/16/18 10:00 01/17/18 09:28 Bystolic - PO 5 mg DAILY CHRIS Administration Pantoprazole Sodium 40 mg 01/17/18 11:45 01/17/18 13:29 Protonix - PO 40 mg DAILY CHRIS Administration Impression 1. CHAN 2. CKD 3. hx renal cell cancer 4. hypocalcemia 5. hematemesis 6. Nephrolithiasis 7. left renal lesion Plan - cont with fluids - can change to 1/2 ns - renal function improving - chan likely from obstruction - check phos level - calcium levels improving - will need follow up after discharge - give copy of ct and ultrasound reports so he can take them to [facility] Dr Arreola
[2018-01-17] MEDS ORDERED: SODIUM CHLORIDE 0.45% 1,000 ML IV SCH (15:15)
--- NOTE | 2018-01-17 16:53 | PN ---
Physical Exam: SUBJECTIVE: Patient seen and examined at the bedside. s/p endoscopy procedure. feels well. no left flank pain today. OBJECTIVE: egd today shows multiple erosions in gastric body. mild duodenitis in dudenal bulb. 8mm ulcer with endoclip x 2. renal function improving Vital Signs Period Temp Pulse Resp BP Sys/Morrison Pulse Ox Last 24 Hr 97.5 F-98.8 F 52-58 12-21 112-148/67-89 97-99 GENERAL: The patient is awake, alert, and fully oriented, in no acute distress. HEAD: Normal with no signs of trauma. EYES: PERRL, extraocular movements intact, sclera anicteric, conjunctiva clear. No ptosis. ENT: Ears normal, nares patent, oropharynx clear without exudates, moist mucous membranes. NECK: Trachea midline, full range of motion, supple. LUNGS: Breath sounds equal, clear to auscultation bilaterally, no wheezes, no crackles, no accessory muscle use. HEART: Regular rate and rhythm ABDOMEN: Soft, nontender, nondistended, normoactive bowel sounds, no guarding, no rebound, no hepatosplenomegaly, no masses. EXTREMITIES: 2+ pulses, warm, well-perfused, no edema. NEUROLOGICAL: Cranial nerves II through XII grossly intact. Normal speech, gait not observed. PSYCH: Normal mood, normal affect. SKIN: Warm, dry, normal turgor, no rashes or lesions noted Laboratory Results - last 24 hr 01/17/18 01/17/18 07:30 07:30 WBC 6.2 RBC 4.36 Hgb 12.4 Hct 37.7 MCV 86.4 MCH 28.4 MCHC 32.9 RDW 13.7 Plt Count 154 MPV 9.0 Absolute Neuts (auto) 4.7 Neutrophils % 76.0 Lymphocytes % 15.2 D Monocytes % 7.2 Eosinophils % 1.2 D Basophils % 0.4 Nucleated RBC % 0 Sodium 141 Potassium 4.8 Chloride 112 H Carbon Dioxide 24 Anion Gap 5 L BUN 29 H Creatinine 3.1 H Creat Clearance w eGFR 21.35 Random Glucose 78 Calcium 8.8 Total Bilirubin 0.4 AST 18 ALT 34 Alkaline Phosphatase 60 Total Protein 6.6 Albumin 3.1 L Active Medications Generic Name Dose Route Start Last Admin Trade Name Freq PRN Reason Stop Dose Admin Acetaminophen 650 mg 01/15/18 18:54 Tylenol - PO Q6H PRN PAIN LEVEL 4 - 6 Levofloxacin 500 mg in 100 mls @ 100 mls/hr 01/16/18 10:00 01/17/18 09:28 Levaquin 500 Mg Premixed Ivpb - IVPB 100 mls/hr DAILY CHRIS Administration Sodium Chloride 1,000 mls @ 100 mls/hr 01/17/18 15:15 1/2 Normal Saline IV ASDIR CHRIS Morphine Sulfate 2 mg 01/15/18 17:49 01/16/18 05:08 Morphine Sulfate IVPUSH 2 mg Q4H PRN Administration PAIN 4-6 Nebivolol 5 mg 01/16/18 10:00 01/17/18 09:28 Bystolic - PO 5 mg DAILY CHRIS Administration Pantoprazole Sodium 40 mg 01/17/18 11:45 01/17/18 13:29 Protonix - PO 40 mg DAILY CHRIS Administration ASSESSMENT/PLAN: Patient 52 year old male with a significant past medical history of renal cancer with a right neph[place] [facility] and history of kidney stones. He comes into the ED with complaints of left flank pain, hematuria and hematemesis. Imaging: ct/abd/pelvis w/o contrast: 2 mm distal left ureteral calculus partially obstructing. mild degree of hydronephrosis. left renal mass cyst. u/x follow up recommended. us/scrotum: no evidence of torsion or acute testicular pathology. small bilateral varicoceles renal u/s: nonspecific mildly hyperechoic 1.3 left renal focus at level of lower pole of left kidney. min left hydro secondary to a 0.2 cm distal left ureteral calculus. renal u/s 01/17: pending : Left flank pain/hematuria in the setting of a 0.2mm distal left ureteral partially obstructing stone. Hydration with 1/2 NS @ 100cc/hr. His urine showed 3+blood. urine cultures negative to date. Gven rocephin on 01/16, now on IV levaquin. Renal: Right nephrectomy/solitary kidney. baseline creat reported to be 1.6. creatinine initially increased to 5.4 which could be due to partially obstructing stone, repeat levels downtrending, currently 3.1. Renal following. electrolytes within normal limits. GI: Hematemesis, no further episodes reported. egd with multiple erosions in gastric body in the setting of chronic nsaid use. mild duodenitis in dudenal bulb. 8mm ulcer with endoclip x 2. fen 1/2 ns @100cc/hr monitor electrolytes daily clear liquid diet protonix bid full code Visit type - Emergency Visit Emergency Visit: Yes ED Registration Date: 01/17/18 Care time: The patient presented to the Emergency Department on the above date and was hospitalized for further evaluation of their emergent condition. - New Patient This patient is new to me today: No - Critical Care Critical Care patient: No - Discharge Referral Referred to [facility] Med P.C.: No
[2018-01-18] MEDS: SODIUM CHLORIDE 0.45% 1,000 ML IV SCH ×3 (04:08→22:33)
[2018-01-18 07:47] LABS: BASO % 0.6 % (0-2.0); EOS % 2.2 % (0-4.5); HEMATOCRIT 37.6 % (35.4-49); HEMOGLOBIN 12.4 GM/dL (11.7-16.9); LYMPH % 18.2 % (8-40); MCH 28.3 pg (25.7-33.7); MEAN CELL VOLUME 85.8 fl (80-96); MEAN PLT VOLUME 9.1 fl (7.5-11.1); MONO % 7.1 % (3.8-10.2); NEUT % 71.9 % (42.8-82.8); PLATELET COUNT 167 K/MM3 (134-434); RBC 4.38 M/mm3 (4.00-5.60); RDW 13.7 % (11.9-15.9); WHITE BLOOD COUNT 4.9 K/mm3 (4.0-10.0)
[2018-01-18 08:57] LABS: ALBUMIN 3.1 g/dl (3.4-5.0); ALK PHOS 57 U/L (45-117); ANION GAP 7 MMOL/L (8-16); BILIRUBIN,TOTAL 0.7 mg/dL (0.2-1); BLOOD UREA NITROGEN 22 mg/dL (7-18); CALCIUM 8.8 mg/dL (8.5-10.1); CHLORIDE 108 mmol/L (98-107); CO2 26 mmol/L (21-32); CREATININE 2.2 mg/dL (0.55-1.3); GLUCOSE,RANDOM 83 mg/dL (74-106); MAGNESIUM 1.9 mg/dL (1.8-2.4); POTASSIUM 4.3 mmol/L (3.5-5.1); SGOT/AST 13 U/L (15-37); SGPT/ALT 29 U/L (13-61); SODIUM 142 mmol/L (136-145); TOT PROT 6.5 g/dl (6.4-8.2)
[2018-01-18] MEDS ORDERED: PT OWN MED DRAWER 7, Y5N ONE (09:13)
[2018-01-18] MEDS: NEBIVOLOL 5 MG TABLET (FP) PO SCH (09:15)
[2018-01-18] MEDS: PANTOPRAZOLE 40 MG TABLET (FP) PO SCH (09:15)
--- NOTE | 2018-01-18 11:40 | PN ---
Physical Exam: SUBJECTIVE: Patient seen and examined. Feels well. Denies any further episodes of vomiting/hematemesis, hematuria. Denies flank pain. Voiding yellow urine. Tolerated clears for breakfast. Hungry. OBJECTIVE: Vital Signs Period Temp Pulse Resp BP Sys/Morrison Pulse Ox Last 24 Hr 98.3 F-98.7 F 48-58 12-21 123-148/75-89 97-99 GENERAL: The patient is awake, alert, and fully oriented, in no acute distress. LUNGS: Breath sounds equal, clear to auscultation bilaterally, no wheezes, no crackles, no accessory muscle use. HEART: Regular rate and rhythm, S1, S2 without murmur, rub or gallop. ABDOMEN: Soft, nontender, nondistended, normoactive bowel sounds, no guarding, no rebound EXTREMITIES: 2+ pulses, warm, well-perfused, no edema. NEUROLOGICAL: Cranial nerves II through XII grossly intact. Normal speech, gait not observed. PSYCH: Normal mood, normal affect. SKIN: Warm, dry, normal turgor Laboratory Results - last 24 hr 01/18/18 01/18/18 07:15 07:15 WBC 4.9 RBC 4.38 Hgb 12.4 Hct 37.6 MCV 85.8 MCH 28.3 MCHC 33.0 RDW 13.7 Plt Count 167 MPV 9.1 Absolute Neuts (auto) 3.5 Neutrophils % 71.9 Lymphocytes % 18.2 Monocytes % 7.1 Eosinophils % 2.2 D Basophils % 0.6 Nucleated RBC % 0 Sodium 142 Potassium 4.3 Chloride 108 H Carbon Dioxide 26 Anion Gap 7 L BUN 22 H Creatinine 2.2 H Creat Clearance w eGFR 31.71 Random Glucose 83 Calcium 8.8 Magnesium 1.9 Total Bilirubin 0.7 AST 13 L ALT 29 Alkaline Phosphatase 57 Total Protein 6.5 Albumin 3.1 L Active Medications Generic Name Dose Route Start Last Admin Trade Name Freq PRN Reason Stop Dose Admin Acetaminophen 650 mg 01/15/18 18:54 Tylenol - PO Q6H PRN PAIN LEVEL 4 - 6 Levofloxacin 500 mg in 100 mls @ 100 mls/hr 01/16/18 10:00 01/18/18 09:15 Levaquin 500 Mg Premixed Ivpb - IVPB 100 mls/hr DAILY CHRIS Administration Sodium Chloride 1,000 mls @ 100 mls/hr 01/17/18 15:15 01/18/18 04:08 1/2 Normal Saline IV 100 mls/hr ASDIR CHRIS Administration Morphine Sulfate 2 mg 01/15/18 17:49 01/16/18 05:08 Morphine Sulfate IVPUSH 2 mg Q4H PRN Administration PAIN 4-6 Nebivolol 5 mg 01/16/18 10:00 01/18/18 09:15 Bystolic - PO 5 mg DAILY CHRIS Administration Pantoprazole Sodium 40 mg 01/17/18 11:45 01/18/18 09:15 Protonix - PO 40 mg DAILY CHRIS Administration ASSESSMENT/PLAN: 52 year-old male with a PMH significant for renal cell carcinoma s/p right nephrectomy ([facility] [place]), and renal calculi. Admitted for a partially obstructing left ureteral stone and upper GI bleed. Upper GI bleed --01/17 EGD: (1) hiatal hernia; (2) multiple erosiions gastric body and gastric antrum likely NSAID-induced; (3) mild duodenitis; (4) 8mm stomach ulcer clipped --no bleeding episodes, h/h stable --continue PO protonix --continue levofloxacin (day #3) --H.pylori tissue biopsy in path lab, should have gram stain results later today Left ureteral stone with hydronephrosis --clinical symptoms have resolved, hematuria has resolved --01/17 US shows minimal left hydronephrosis LOVE on CKD --baseline Cr ~1.7-1.8 --Cr on admission 1.9, peaked at 5.4, today 2.2 --continue IV fluids Renal cell carcinoma s/p right nephrectomy Lesion left kidney --followed at [facility] by Dr. Anibal Mayen ([phone]); the left kidney lesion seen on 01/15 US here was previously seen by Dr. Mayen in July 2017; he is monitoring the lesion and patient has f/u appt on 02/01/18; no need for further imaging here FEN Fluids: 1/2 NS @100mL/hr Electrolytes: replete as indicated Nutrition: soft diet; advance as tolerated DVT prophylaxis: subq heparin Dispo: continues to require inpatient care. Full code. Visit type - Emergency Visit Emergency Visit: Yes ED Registration Date: 01/17/18 Care time: The patient presented to the Emergency Department on the above date and was hospitalized for further evaluation of their emergent condition. - New Patient This patient is new to me today: Yes Date on this admission: 01/18/18 - Critical Care Critical Care patient: No
--- NOTE | 2018-01-18 13:31 | PATH ---
Surgical Pathology Report Patient Name: VINNIE KUMAR [facility]. Rec. #: [id number] /Age/Gender: 1965 (Age: 52) / M Account: [id number] Location: [facility] MED/SURG Taken: 01/17/2018 Received: 01/17/2018 Reported: 01/18/2018 Physicians: Madeline Serrato F.N.P. Specimen(s) Received A: BX OF FUNDUS ULCER B: BX BODY AND ANGULARIS Clinical History Hematemesis Postoperative diagnosis: Gastritis, gastric ulcer, hiatal hernia, duodenitis Final Diagnosis A. STOMACH, FUNDUS, BIOPSY: GASTRIC OXYNTIC MUCOSA WITH MILD CHRONIC GASTRITIS. IMMUNOHISTOCHEMICAL STAIN FOR H. PYLORI IS NEGATIVE. B. STOMACH, ANGULARIS/BODY BIOPSY: GASTRIC BODY MUCOSA WITH MILD CHRONIC GASTRITIS. IMMUNOHISTOCHEMICAL STAIN FOR H. PYLORI IS NEGATIVE. Electronically Signed Cecy Zhou M.D. Gross Description A. Received in formalin, labeled "ulcer in fundus" is a gonzalez, irregular portion of soft tissue measuring 0.2 cm. in greatest dimension. The specimen is submitted in toto in one cassette. B. Received in formalin, labeled "BX angularis/body" are 2 gonzalez, irregular portions of soft tissue measuring 0.1 and 0.2 cm. in greatest dimension. The specimens are submitted in toto in one cassette. MLSZ/01/17/2018. sanml/01/17/2018
[2018-01-18] MEDS: HEPARIN NA (PORCINE) 5,000 UNITS/ML 1ML VIAL SQ SCH ×3 (15:02→22:34)
--- NOTE | 2018-01-18 15:58 | PN ---
GI Progress Note Subjective: No acute events No vomiting Diminished appetite has improved - Objective Vital Signs: Vital Signs Temperature 98.6 F 01/18/18 15:11 Pulse Rate 60 01/18/18 15:11 Respiratory Rate 18 01/18/18 15:11 Blood Pressure 129/85 01/18/18 15:11 O2 Sat by Pulse Oximetry (%) 99 01/18/18 12:00 Constitutional: Calm Eyes: No: Sclera Icterus Cardiovascular: Yes: Regular Rate and Rhythm Respiratory: Yes: CTA Bilaterally Gastrointestinal Inspection: No: Distention ...Auscultate: Yes: Normoactive Bowel Sounds ...Palpate: No: Tenderness ...Percussion: No: Tympanitic Edema: No (No LE edema) Neurological: Yes: Alert Labs: CBC, BMP 01/18/18 07:15 01/18/18 07:15 INR, PTT INR 1.01 (0.83-1.09) 01/15/18 11:00 Problem List - Problems (1) Hematemesis Assessment/Plan: No novert bleeding Continue soft diet Continue to monitor If h. pylori + would offer treatment Protonix 40mg once daily Code(s): K92.0 - HEMATEMESIS
--- NOTE | 2018-01-18 16:58 | PN ---
Progress Note, Physician History of Present Illness: Pt seen and examine at bedside. He is awake and alert. He denies shortness of breath. He denies dysuria. - Current Medication List Current Medications: Active Medications Acetaminophen (Tylenol -) 650 mg PO Q6H PRN PRN Reason: PAIN LEVEL 4 - 6 Heparin Sodium (Porcine) (Heparin -) 5,000 unit SQ TID [facility] Last Admin: 01/18/18 15:04 Dose: Not Given Levofloxacin (Levaquin 500 Mg Premixed Ivpb -) 500 mg in 100 mls @ 100 mls/hr IVPB DAILY [facility] Last Admin: 01/18/18 09:15 Dose: 100 mls/hr Sodium Chloride (1/2 Normal Saline) 1,000 mls @ 100 mls/hr IV ASDIR [facility] Last Admin: 01/18/18 04:08 Dose: 100 mls/hr Morphine Sulfate (Morphine Sulfate) 2 mg IVPUSH Q4H PRN PRN Reason: PAIN 4-6 Last Admin: 01/16/18 05:08 Dose: 2 mg Nebivolol (Bystolic -) 5 mg PO DAILY [facility] Last Admin: 01/18/18 09:15 Dose: 5 mg Pantoprazole Sodium (Protonix -) 40 mg PO DAILY [facility] Last Admin: 01/18/18 09:15 Dose: 40 mg - Objective Vital Signs: Vital Signs Temperature 98.6 F 01/18/18 15:11 Pulse Rate 60 01/18/18 15:11 Respiratory Rate 18 01/18/18 15:11 Blood Pressure 129/85 01/18/18 15:11 O2 Sat by Pulse Oximetry (%) 99 01/18/18 12:00 Constitutional: Yes: Calm HENT: Yes: Atraumatic Neck: Yes: Supple Cardiovascular: Yes: S1, S2 Respiratory: Yes: CTA Bilaterally Gastrointestinal: Yes: Normal Bowel Sounds, Soft Genitourinary: Yes: WNL Musculoskeletal: Yes: WNL Edema: No Neurological: Yes: Oriented Psychiatric: Yes: Oriented Labs: CBC, BMP 01/18/18 07:15 01/18/18 07:15 INR, PTT INR 1.01 (0.83-1.09) 01/15/18 11:00 Problem List - Problems (1) LOVE (acute kidney injury) Code(s): N17.9 - ACUTE KIDNEY FAILURE, UNSPECIFIED (2) Kidney stone Code(s): N20.0 - CALCULUS OF KIDNEY Assessment/Plan Current Medications Generic Name Dose Route Start Last Admin Trade Name Freq PRN Reason Stop Dose Admin Acetaminophen 650 mg 01/15/18 18:54 Tylenol - PO Q6H PRN PAIN LEVEL 4 - 6 Heparin Sodium (Porcine) 5,000 unit 01/18/18 14:00 01/18/18 15:04 Heparin - SQ Not Given TID [facility] Levofloxacin 500 mg in 100 mls @ 100 mls/hr 01/16/18 10:00 01/18/18 09:15 Levaquin 500 Mg Premixed Ivpb - IVPB 100 mls/hr DAILY [facility] Administration Sodium Chloride 1,000 mls @ 100 mls/hr 01/17/18 15:15 01/18/18 04:08 1/2 Normal Saline IV 100 mls/hr ASDIR [facility] Administration Morphine Sulfate 2 mg 01/15/18 17:49 01/16/18 05:08 Morphine Sulfate IVPUSH 2 mg Q4H PRN Administration PAIN 4-6 Nebivolol 5 mg 01/16/18 10:00 01/18/18 09:15 Bystolic - PO 5 mg DAILY [facility] Administration Pantoprazole Sodium 40 mg 01/17/18 11:45 01/18/18 09:15 Protonix - PO 40 mg DAILY [facility] Administration Impression 1. LOVE 2. CKD 3. hx renal cell cancer 4. hypocalcemia 5. hematemesis 6. Nephrolithiasis 7. left renal lesion Plan - renal function is improving - repeat labs in am - gave pt copies of his radiology reports so he can follow at [facility] [place] for left renal lesion - calcium level is stable - will need follow up after discharge Dr Arreola
[2018-01-19] MEDS: SODIUM CHLORIDE 0.45% 1,000 ML IV SCH (02:56)
[2018-01-19] MEDS: HEPARIN NA (PORCINE) 5,000 UNITS/ML 1ML VIAL SQ SCH (05:56)
[2018-01-19 09:30] LABS: ANION GAP 9 MMOL/L (8-16); BLOOD UREA NITROGEN 21 mg/dL (7-18); CALCIUM 9.2 mg/dL (8.5-10.1); CHLORIDE 109 mmol/L (98-107); CO2 24 mmol/L (21-32); CREATININE 1.9 mg/dL (0.55-1.3); GLUCOSE,RANDOM 84 mg/dL (74-106); POTASSIUM 4.4 mmol/L (3.5-5.1); SODIUM 142 mmol/L (136-145)
[2018-01-19 09:31] LABS: PHOSPHOROUS 3.4 mg/dL (2.5-4.9)
[2018-01-19] MEDS ORDERED: PT OWN MED DRAWER 7, Y5N ONE (09:39)
[2018-01-19] MEDS: NEBIVOLOL 5 MG TABLET (FP) PO SCH (09:49)
[2018-01-19] MEDS: PANTOPRAZOLE 40 MG TABLET (FP) PO SCH (09:49)
--- NOTE | 2018-01-19 13:03 | PN ---
Progress Note, Physician History of Present Illness: Pt seen and examined at bedside. He is awake and alert. He denies dysuria. He is eager to go home. - Current Medication List Current Medications: Active Medications Acetaminophen (Tylenol -) 650 mg PO Q6H PRN PRN Reason: PAIN LEVEL 4 - 6 Heparin Sodium (Porcine) (Heparin -) 5,000 unit SQ TID [facility] Last Admin: 01/19/18 05:56 Dose: Not Given Levofloxacin (Levaquin 500 Mg Premixed Ivpb -) 500 mg in 100 mls @ 100 mls/hr IVPB DAILY [facility] Last Admin: 01/19/18 09:49 Dose: 100 mls/hr Sodium Chloride (1/2 Normal Saline) 1,000 mls @ 100 mls/hr IV ASDIR [facility] Last Admin: 01/19/18 02:56 Dose: 100 mls/hr Morphine Sulfate (Morphine Sulfate) 2 mg IVPUSH Q4H PRN PRN Reason: PAIN 4-6 Last Admin: 01/16/18 05:08 Dose: 2 mg Nebivolol (Bystolic -) 5 mg PO DAILY [facility] Last Admin: 01/19/18 09:49 Dose: 5 mg Pantoprazole Sodium (Protonix -) 40 mg PO DAILY [facility] Last Admin: 01/19/18 09:49 Dose: 40 mg - Objective Vital Signs: Vital Signs Temperature 98.2 F 01/19/18 06:25 Pulse Rate 58 L 01/19/18 06:25 Respiratory Rate 20 01/19/18 06:25 Blood Pressure 120/84 01/19/18 06:25 O2 Sat by Pulse Oximetry (%) 97 01/18/18 20:00 Constitutional: Yes: Calm Eyes: Yes: Conjunctiva Clear HENT: Yes: Atraumatic Neck: Yes: Supple Cardiovascular: Yes: S1, S2 Respiratory: Yes: CTA Bilaterally Gastrointestinal: Yes: Soft Genitourinary: Yes: WNL Musculoskeletal: Yes: WNL Edema: No Neurological: Yes: Oriented Psychiatric: Yes: Oriented Labs: CBC, BMP 01/18/18 07:15 01/19/18 07:00 INR, PTT INR 1.01 (0.83-1.09) 01/15/18 11:00 Problem List - Problems (1) LOVE (acute kidney injury) Code(s): N17.9 - ACUTE KIDNEY FAILURE, UNSPECIFIED (2) Kidney stone Code(s): N20.0 - CALCULUS OF KIDNEY Assessment/Plan Current Medications Generic Name Dose Route Start Last Admin Trade Name Freq PRN Reason Stop Dose Admin Acetaminophen 650 mg 01/15/18 18:54 Tylenol - PO Q6H PRN PAIN LEVEL 4 - 6 Heparin Sodium (Porcine) 5,000 unit 01/18/18 14:00 01/19/18 05:56 Heparin - SQ Not Given TID [facility] Levofloxacin 500 mg in 100 mls @ 100 mls/hr 01/16/18 10:00 01/19/18 09:49 Levaquin 500 Mg Premixed Ivpb - IVPB 100 mls/hr DAILY [facility] Administration Sodium Chloride 1,000 mls @ 100 mls/hr 01/17/18 15:15 01/19/18 02:56 1/2 Normal Saline IV 100 mls/hr ASDIR [facility] Administration Morphine Sulfate 2 mg 01/15/18 17:49 01/16/18 05:08 Morphine Sulfate IVPUSH 2 mg Q4H PRN Administration PAIN 4-6 Nebivolol 5 mg 01/16/18 10:00 01/19/18 09:49 Bystolic - PO 5 mg DAILY [facility] Administration Pantoprazole Sodium 40 mg 01/17/18 11:45 01/19/18 09:49 Protonix - PO 40 mg DAILY [facility] Administration Impression 1. LOVE 2. CKD 3. hx renal cell cancer 4. hypocalcemia 5. hematemesis 6. Nephrolithiasis 7. left renal lesion Plan - renal function continues to improve - pt will follow at [facility] for renal mass - monitor labs while on fluids - can see pt in office, please give referral Dr Arreola
[2018-01-19 14:44] VITALS: BP 132/85; PULSE 57; TEMP 98.5
--- NOTE | 2018-01-19 14:53 | DS ---
Physical Exam: SUBJECTIVE: Patient seen and examined OBJECTIVE: Vital Signs Period Temp Pulse Resp BP Sys/Morrison Pulse Ox Last 24 Hr 98.2 F-98.6 F 51-60 18-20 120-137/74-86 97 PHYSICAL EXAM GENERAL: The patient is awake, alert, and fully oriented, in no acute distress. HEAD: Normal with no signs of trauma. EYES: PERRL, extraocular movements intact, sclera anicteric, conjunctiva clear. ENT: Ears normal, nares patent, oropharynx clear without exudates, moist mucous membranes. NECK: Trachea midline, full range of motion, supple. LUNGS: Breath sounds equal, clear to auscultation bilaterally, no wheezes, no crackles, no accessory muscle use. HEART: Regular rate and rhythm, S1, S2 without murmur, rub or gallop. ABDOMEN: Soft, nontender, nondistended, normoactive bowel sounds, no guarding, no rebound, no hepatosplenomegaly, no masses. EXTREMITIES: 2+ pulses, warm, well-perfused, no edema. NEUROLOGICAL: Cranial nerves II through XII grossly intact. Normal speech, gait not observed. PSYCH: Normal mood, normal affect. SKIN: Warm, dry, normal turgor, no rashes or lesions noted. LABS Laboratory Results - last 24 hr 01/19/18 07:00 Sodium 142 Potassium 4.4 Chloride 109 H Carbon Dioxide 24 Anion Gap 9 BUN 21 H Creatinine 1.9 H Creat Clearance w eGFR 37.56 Random Glucose 84 Calcium 9.2 Phosphorus 3.4 HOSPITAL COURSE: Date of Admission:01/17/18 Date of Discharge: 01/19/18 Minutes to complete discharge: 35 Discharge Summary Reason For Visit: HEMATEMESIS Current Active Problems LOVE (acute kidney injury) (Acute) Hematemesis (Acute) Kidney stone (Acute) Left ureteral calculus (Acute) Condition: Improved - Instructions Disposition: HOME - Home Medications Comprehensive Discharge Medication List: Ambulatory Orders Nebivolol [Bystolic -] 5 mg PO DAILY 01/15/18 This patient is new to me today: No Emergency Visit: Yes ED Registration Date: 01/17/18 Care time: The patient presented to the Emergency Department on the above date and was hospitalized for further evaluation of their emergent condition. Critical Care patient: No - Discharge Referral Referred to [facility] Med P.C.: No
== END 2018-01-19 15:53 | disposition home or self-care (01) | DRG 683 ==
LOC: JER 09:54 → JERBED 14:15 → J8W 17:16 → OBSVTOIN 01-17 18:07
PROVIDERS: ADMIT Internal Medicine; ATTEND Nurse Practitioner Acute Care
DX: N17.9 Acute kidney failure, unspecified (principal); K92.0 Hematemesis; R31.9 Hematuria, unspecified; N18.9 Chronic kidney disease, unspecified; E83.51 Hypocalcemia; N13.2 Hydronephrosis with renal and ureteral calculous obstruction
CPT/HCPCS: 36415; 74176-TC; 76775-TC; 76870-TC; 80048; 80053; 81003; 81015; 82550; 83690; 83735; 84100; 85025; 85027; 85610; 85730; 86850; 86900; 86901; 87086; 88305-TC; 88342-TC; 99284-25; G0378; J0131; J1644; J7030

== ENCOUNTER 2019-05-30 14:20 | Emergency (ER) | payer BC ==
[2019-05-30 14:46] VITALS: TEMP 98; BMI 26.1
--- NOTE | 2019-05-30 14:48 | PDOC ---
Rapid Medical Evaluation Medical Evaluation: Allergies Allergy/AdvReac Type Severity Reaction Status Date / Time No Known Allergies Allergy Verified 01/15/18 10:05 Vital Signs Temp Pulse Resp BP Pulse Ox 98 F 87 18 164/102 H 100 05/30/19 14:42 05/30/19 14:42 05/30/19 14:42 05/30/19 14:42 05/30/19 14:42 05/30/19 14:46 Pt c/o: headache, kidney pain , chest tightness x 3 days, hx of kidney cancer and htn, not taking bystolic regularly (rx sent by Dr. Herrera) Pt on brief exam: 164/102. lcta, no cva tenderness Pt ordered for: labs, urine, ekg pt to proceed to the ED Discharge Disposition - Diagnosis High blood pressure Qualifiers: Hypertension type: unspecified Qualified Code(s): I10 - Essential (primary) hypertension - Discharge Dispostion Disposition: HOME Condition at time of disposition: Improved - Prescriptions Prescriptions: Nebivolol [Bystolic -] 5 mg PO DAILY #30 tab - Referrals - Patient Instructions Printed Discharge Instructions: DI for High Blood Pressure Additional Instructions: A 30 day prescription for your blood pressure medication has been sent to your pharmacy. Take this as directed. You have 1 refill provided. Please follow up with your straight line press setter. Call their office first thing tomorrow to make an appointment to discuss medication options for your high blood pressure. Return to the ED for any new or concerning symptoms. - Post Discharge Activity
[2019-05-30 16:54] LABS: BASO % 0.4 % (0-2.0); EOS % 1.7 % (0-4.5); HEMATOCRIT 41.8 % (35.4-49); HEMOGLOBIN 13.7 GM/dL (11.7-16.9); LYMPH % 7.1 % (8-40); MCH 28.4 pg (25.7-33.7); MCHC 32.7 g/dl (32.0-35.9); MEAN CELL VOLUME 86.8 fl (80-96); MEAN PLT VOLUME 9.5 fl (7.5-11.1); NEUT % 79.8 % (42.8-82.8); PLATELET COUNT 202 K/MM3 (134-434); RBC 4.82 M/mm3 (4.00-5.60); RDW 13.7 % (11.9-15.9); WHITE BLOOD COUNT 4.5 K/mm3 (4.0-10.0)
[2019-05-30 16:56] LABS: PH,URINE 5.5 (5.0-8.0); URINE APPEARANCE CLEAR; URINE BILIRUBIN NEGATIVE (NEGATIVE); URINE COLOR YELLOW; URINE GLUCOSE (UA) NEGATIVE (NEGATIVE); URINE KETONE NEGATIVE (NEGATIVE); URINE LEUK ESTERASE NEGATIVE (NEGATIVE); URINE NITRITE NEGATIVE (NEGATIVE); URINE PROTEIN NEGATIVE (NEGATIVE); URINE UROBILINOGEN 0.2 mg/dL (0.2-1.0)
[2019-05-30 17:20] LABS: ALBUMIN 3.8 g/dl (3.4-5.0); ALK PHOS 76 U/L (45-117); ANION GAP 6 MMOL/L (8-16); BILIRUBIN,TOTAL 1.1 mg/dL (0.2-1); CALCIUM 9.1 mg/dL (8.5-10.1); CHLORIDE 105 mmol/L (98-107); CO2 25 mmol/L (21-32); CREATININE 1.8 mg/dL (0.55-1.3); GLUCOSE,RANDOM 86 mg/dL (74-106); POTASSIUM 4.2 mmol/L (3.5-5.1); SGOT/AST 25 U/L (15-37); SGPT/ALT 53 U/L (13-61); SODIUM 137 mmol/L (136-145); TOT PROT 7.6 g/dl (6.4-8.2)
[2019-05-30] MEDS ORDERED: NEBIVOLOL 10 MG TABLET (FP) PO ONE (17:28)
[2019-05-30] MEDS ORDERED: ACETAMINOPHEN 500 MG TABLET (FP) PO ONE (17:30)
--- NOTE | 2019-05-30 17:34 | PDOC ---
History of Present Illness - General Chief Complaint: Blood Pressure Problem Stated Complaint: HYPERTENSION Time Seen by Provider: 05/30/19 14:48 History Source: Patient Exam Limitations: No Limitations - History of Present Illness Initial Comments: 05/30/19 17:28 HPI: 54yo M with PMH renal cancer s/p nephrectomy, presenting for elevated blood pressure. Did not take BP medication this afternoon (noncompliant due to cost), developed chest tightness, SOB, headache. Took Tylenol at 1PM with some relief. Chest pain described as tightness, non-radiating, spontaneously resolved. Associated with shortness of breath. Headache, holocranial, now frontal, largely improved. Denies any nausea, vomiting, visual change, abdominal or back pain. Denies weakness, numbness, tingling, difficulty with ambulation. All: NKDA Meds: per chart PMH: As above PSH: Per chart Past History - Travel Traveled outside of the country in the last 30 days: No Close contact w/someone who was outside of country & ill: No - Past Medical History Allergies/Adverse Reactions: Allergies Allergy/AdvReac Type Severity Reaction Status Date / Time No Known Allergies Allergy Verified 05/30/19 14:46 Home Medications: Ambulatory Orders Nebivolol [Bystolic -] 5 mg PO DAILY 01/15/18 Pantoprazole Sodium [Protonix -] 40 mg PO DAILY #30 tablet.ec 01/19/18 Nebivolol [Bystolic -] 5 mg PO DAILY #30 tab 05/30/19 Cancer: Yes (KIDNEY) COPD: No HTN: Yes - Psycho Social/Smoking Cessation Hx Smoking Status: No Smoking History: Never smoked Have you smoked in the past 12 months: No Number of Cigarettes Smoked Daily: 0 Hx Alcohol Use: Yes (Occasional wine) Drug/Substance Use Hx: No Substance Use Type: None Hx Substance Use Treatment: No Review of Systems - Review of Systems Able to Perform ROS?: Yes Is the patient limited Belarusian proficient: Yes Constitutional: No: Chills, Fever, Weakness HEENTM: No: Nose Congestion, Throat Pain Respiratory: No: Cough, Orthopnea, Shortness of Breath, Wheezing, Productive cough Cardiac (ROS): Yes: Chest Tightness. No: Chest Pain, Edema, Irregular Heart Rate, Lightheadedness, Palpitations, Syncope ABD/GI: No: Constipated, Diarrhea, Nausea, Poor Appetite, Poor Fluid Intake, Vomiting : No: Burning, Dysuria, Frequency Musculoskeletal: No: Muscle Pain, Muscle Weakness Integumentary: No: Bruising, Pruritus, Rash Neurological: No: Headache, Numbness, Tingling, Weakness Endocrine: No: Increased Thirst, Increased Urine Hematologic/Lymphatic: No: Anemia, Blood Clots, Easy Bleeding All Other Systems: Reviewed and Negative *Physical Exam - Vital Signs Last Vital Signs Temp Pulse Resp BP Pulse Ox 98 F 87 16 158/89 99 05/30/19 14:42 05/30/19 17:27 05/30/19 17:27 05/30/19 17:27 05/30/19 17:27 - Physical Exam 05/30/19 17:31 Vitals reviewed, AFVSS, hypertensive to SBP 160s GEN: Well appearing, appears stated age, NAD, comfortable. AAOx3. HEENT: NCAT, EOMI, PERRL. Sclera anicteric, noninjected. No facial asymmetry. Moist mucous membranes. Normal voice. Trachea midline. CV: RRR, S1/S2, no murmurs / rubs / gallops appreciated. LUNG: CTAB, normal work of breathing. No wheezes, rales, rhonchi. No cough. Speaking full sentences. GI: Soft, NTND, +BS, no guarding, no rebound. No masses. Neg CVAT b/l. EXTREMITIES: 2+ distal pulses. No LE edema. No obvious deformities of all extremities. SKIN: Warm, dry, no rashes appreciated, non-jaundiced. PSYCH: Normal mood and affect. Cooperative and appropriate. NEURO: CN 2-12 intact. 5+ strength throughout, normal sensation. Normal finger- nose-finger. Normal gait. ED Treatment Course - LABORATORY CBC & Chemistry Diagram: 05/30/19 15:49 05/30/19 15:37 - ADDITIONAL ORDERS Additional order review: Laboratory Results 05/30/19 05/30/19 15:49 15:37 Sodium 137 Potassium 4.2 Chloride 105 Carbon Dioxide 25 Anion Gap 6 L BUN 20.0 H Creatinine 1.8 H Est GFR (CKD-EPI)AfAm 48.72 Est GFR (CKD-EPI)NonAf 42.03 Random Glucose 86 Calcium 9.1 Total Bilirubin 1.1 H AST 25 ALT 53 Alkaline Phosphatase 76 Total Protein 7.6 Albumin 3.8 Urine Color Yellow Urine Appearance Clear Urine pH 5.5 Ur Specific [place] 1.006 L Urine Protein Negative Urine Glucose (UA) Negative Urine Ketones Negative Urine Blood Negative Urine Nitrite Negative Urine Bilirubin Negative Urine Urobilinogen 0.2 Ur Leukocyte Esterase Negative 05/30/19 15:49 RBC 4.82 MCV 86.8 MCHC 32.7 RDW 13.7 MPV 9.5 Neutrophils % 79.8 Lymphocytes % 7.1 L D Monocytes % 11.0 H Eosinophils % 1.7 Basophils % 0.4 Medical Decision Making - Medical Decision Making 05/30/19 17:32 54yo M with PMH renal cancer s/p nephrectomy, presenting for elevated blood pressure this afternoon. Now with mild, resolving headache. Otherwise symptomatic. - CBC, CMP, Cardiac Profile, UA - Tylenol 975 mg PO - Home Bystolic 10 mg PO - EKG 05/30/19 18:12 - Labs unremarkable, CKD with mildly improved creatinine from prior - Troponin unremarkable 05/30/19 18:15 EKbpm, NSR, normal axis, QTc 418, meets LVH criteria, no ischmic changes Dispo: Home Discharge - Discharge Information Problems reviewed: Yes Clinical Impression/Diagnosis: High blood pressure Qualifiers: Hypertension type: unspecified Qualified Code(s): I10 - Essential (primary) hypertension Condition: Improved Disposition: HOME - Admission No - Follow up/Referral - Patient Discharge Instructions Patient Printed Discharge Instructions: DI for High Blood Pressure Additional Instructions: A 30 day prescription for your blood pressure medication has been sent to your pharmacy. Take this as directed. You have 1 refill provided. Please follow up with your risk control representative. Call their office first thing tomorrow to make an appointment to discuss medication options for your high blood pressure. Return to the ED for any new or concerning symptoms. - Post Discharge Activity
[2019-05-30] MEDS ORDERED: ACETAMINOPHEN 325 MG TABLET (FP) ONE (17:45)
[2019-05-30 18:53] VITALS: BP 140/90; PULSE 83
--- NOTE | 2019-05-31 03:30 | PDOC ---
Documentation entered by Gerda Marr SCRIBE, acting as scribe for Polina Rosales MD. Polina Rosales MD: This documentation has been prepared by the Justa ramirez Nirvannie, SCRIBE, under my direction and personally reviewed by me in its entirety. I confirm that the documentation accurately reflects all work, treatment, procedures, and medical decision making performed by me. Attending Attestation - Resident Resident Name: Blayne Tariq - ED Attending Attestation I have performed the following: I have examined & evaluated the patient, The case was reviewed & discussed with the resident, I agree w/resident's findings & plan, Exceptions are as noted - HPI HPI: 05/30/19 18:14 The patient is a 54 year old male, with a significant past medical history of HTN and renal cancer (s/p nephrectomy), who presents to the emergency department with elevated blood pressure with associated shortness of breath, chest tightness, and headache. Patient took Tylenol for his symptoms with minimal relief. Patient notes noncompliance with HTN medications secondary to medication costs. - Physicial Exam PE: 05/31/19 03:26 54 yo male presented to ED because he ran out of his Bystolic and had elevated BP and headache HEAD NCAT NECK SUPPLE LUNGS CTA B/L CVS [id number] ABD NONTEDNER NO FLANK PAIN NEURP AXOX3,AMBULATORY,NO FOCAL NEURO DEFICITS - Medical Decision Making 05/31/19 03:28 PT HAD NEPHRECTOMY 2016 FOR RENAL CELL CA pt;s elevated BP came down and headache resolved pt will followup with his physician RX sent to his pharmacy
--- NOTE | 2019-05-31 11:38 | EKG ---
Test Reason : Blood Pressure : / mmHG Vent. Rate : 085 BPM Atrial Rate : 085 BPM P-R Int : 134 ms QRS Dur : 072 ms QT Int : 352 ms P-R-T Axes : 069 029 029 degrees QTc Int : 418 ms NORMAL SINUS RHYTHM POSSIBLE LEFT ATRIAL ENLARGEMENT LEFT VENTRICULAR HYPERTROPHY ABNORMAL ECG NO PREVIOUS ECGS AVAILABLE Confirmed by Clarke Olivarez MD ([id number]) on 05/31/2019 11:38:35 AM Referred By: Confirmed By:Clarke Olivarez MD
== END 2019-05-30 18:54 | disposition home or self-care (01) ==
LOC: JER 14:20
DX: I10 Essential (primary) hypertension (principal); Z85.528 Personal history of other malignant neoplasm of kidney; Z90.5 Acquired absence of kidney
CPT/HCPCS: 36415; 80053; 81003; 82550; 82553; 84484; 85025; 87086; 93005; 93010; 99283-25